=== PATIENT | female | born 1990 | race Hispanic/Latino ===

== ENCOUNTER 2016-10-01 06:54 | Emergency (ER) | payer SELFPAY ==
[2016-10-01 07:31] VITALS: BP 143/105
--- NOTE | 2016-10-01 10:16 | Emergency Department Report ---
ED ENT HPI - General Chief complaint: Dental/Oral Stated complaint: TOOTHACHE Time Seen by Provider: 10/01/16 09:19 Source: patient Mode of arrival: Ambulatory Limitations: No Limitations - History of Present Illness Initial comments: 25-year-old female comes in with complaint of tooth pain it's been going on for 2 weeks. Patient reports that she has been taking Tylenol and ibuprofen without much resolution. Patient feels that her face is starting to swell. She denies any fever no nausea no vomiting. MD complaint: tooth pain - Related Data Previous Rx's Medication Instructions Recorded Last Taken Type Acetaminophen/Codeine [Tylenol #3] 1 tab PO Q6H PRN #12 tab 10/01/16 Unknown Rx Clindamycin [Clindamycin CAP] 300 mg PO Q8H #30 cap 10/01/16 Unknown Rx Allergies Allergy/AdvReac Type Severity Reaction Status Date / Time No Known Allergies Allergy Unverified 10/01/16 07:27 ED Dental HPI - General Chief complaint: Dental/Oral Stated complaint: TOOTHACHE Time Seen by Provider: 10/01/16 09:19 Source: patient Mode of arrival: Ambulatory Limitations: No Limitations - History of Present Illness MD complaint: tooth pain -: week(s) (2) Severity: moderate Quality: aching Consistency: constant Improves with: none Worsens with: none Context- Dental: history of dental caries - Related Data Previous Rx's Medication Instructions Recorded Last Taken Type Acetaminophen/Codeine [Tylenol #3] 1 tab PO Q6H PRN #12 tab 10/01/16 Unknown Rx Clindamycin [Clindamycin CAP] 300 mg PO Q8H #30 cap 10/01/16 Unknown Rx Allergies Allergy/AdvReac Type Severity Reaction Status Date / Time No Known Allergies Allergy Unverified 10/01/16 07:27 ED Review of Systems ROS: Stated complaint: TOOTHACHE Other details as noted in HPI ENT: dental pain ED Past Medical Hx - Past Medical History Previous Medical History?: Yes Hx Hypertension: Yes - Surgical History Past Surgical History?: Yes Additional Surgical History: - Social History Smoking Status: Current Every Day Smoker Substance Use Type: None - Medications Home Medications: Home Medications Medication Instructions Recorded Confirmed Last Taken Type Acetaminophen/Codeine [Tylenol #3] 1 tab PO Q6H PRN #12 tab 10/01/16 Unknown Rx Clindamycin [Clindamycin CAP] 300 mg PO Q8H #30 cap 10/01/16 Unknown Rx ED Physical Exam - General Limitations: No Limitations - Expanded ENT Exam Expanded Ear exam: Present: normal external inspection Mouth exam: Present: normal external inspection, tongue normal. Absent: drooling, trismus Teeth exam: Present: dental caries, dental tenderness # (14) - Neck Neck exam: Present: normal inspection, full ROM. Absent: tenderness, lymphadenopathy ED Course Vital Signs 10/01/16 07:27 Temperature 98.1 F Pulse Rate 77 Respiratory 18 Rate Blood Pressure 143/105 O2 Sat by Pulse 100 Oximetry Critical care attestation.: If time is entered above; I have spent that time in minutes in the direct care of this critically ill patient, excluding procedure time. ED Disposition Clinical Impression: Tooth caries Disposition: DISCHARGED TO HOME OR SELFCARE Is pt being admited?: No Does the pt Need Aspirin: No Condition: Stable Instructions: Toothache (ED), Dental Caries (ED) Additional Instructions: Complete your antibiotics as prescribed follow up with a dentist Prescriptions: Acetaminophen/Codeine [Tylenol #3] 1 tab PO Q6H PRN #12 tab PRN Reason: Pain Clindamycin [Clindamycin CAP] 300 mg PO Q8H #30 cap Referrals: PRIMARY CARE, [Primary Care Provider] - 3-5 Days [facility] [Outside] - 3-5 Days [facility] [Outside] - 3-5 Days Forms: Work/School Release Form(ED)
== END 2016-10-01 10:25 | disposition home or self-care (01) ==
LOC: ED 06:54
DX: K02.9 Dental caries, unspecified (principal); I10 Essential (primary) hypertension; F17.200 Nicotine dependence, unspecified, uncomplicated
CPT/HCPCS: 99282